=== PATIENT | male | born 1970 | race Caucasian/White ===

== ENCOUNTER 2016-09-01 04:37 | Emergency (ER) | payer MEDICAID ==
[~2016-09-01] VITALS: Ht 203.2 cm; Wt 88.7 kg
--- NOTE | 2016-09-01 05:15 | NUR ---
Dr. Bell applied cherelle bandage and telfa to site. Patient had wrapped with a towel using to duck tape to hold in place. Towel had large amout of blood on it, was not bleeding when we took the towel off .
[2016-09-01 05:28] VITALS: BP 147/67
== END 2016-09-01 05:17 | disposition home or self-care (01) ==
LOC: ED 04:40
DX: I86.8 Varicose veins of other specified sites (principal)
CPT/HCPCS: 99281; 99282